=== PATIENT | male | born 1975 | race Caucasian/White ===

== ENCOUNTER 2022-08-15 20:48 | Emergency (ER) | payer SELFPAY ==
--- OUTSIDE RECORDS SUMMARY | 2022-08-15 20:51 | XMS REPORT | Continuity of Care Document ---
:1975 Author Organization [facility] t Address [address] [place] [address] Care Team Providers Name Role Phone Pcp, Patient Does Not Have A Primary Care Physician [phone] Maci Cano RN Attending Clinician Unavailable LEE MAYA Attending Clinician Unavailable Only, Ang Db Test Attending Clinician Unavailable Lee Kohli Attending Clinician Doctor Unassigned, [place] Attending Clinician Unavailable Nguyen Alva Attending Clinician Unknown, Attending Attending Clinician Unavailable NGUYEN BARON Attending Clinician Unavailable Andrea Gasca Attending Clinician ANDREA CHOUDHURY Attending Clinician Unavailable SATISH KIRK Attending Clinician Unavailable KATIE MAHMOOD Attending Clinician Unavailable Dany Rios DO Attending Clinician Leti Borges MD Attending Clinician LETI BORGES Attending Clinician Unavailable LETI BORGES Attending Clinician Unavailable 1, [facility] Attending Clinician Unavailable Payers Payer Name Policy Type Policy Number Effective Date Expiration Date [facility] [id number] 2019 [facility] 00:00:00 Problems Condition Condition Condition Status Onset Resolution Last Treating Co mments Source Name Details Category Date Date Treatment Clinician Date 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 M ethodi hypofuncti hypofuncti 07-10 on on 00:00: Hospita 00 l Left ankle Left ankle Disease Active M ethodi pain pain 03-23 st 00:00: Hospita 00 l No known No known Disease Unive rs active active ity of problems problems [facility] Allergies, Adverse Reactions, Alerts Allergy Allergy Status Severity Reaction(s) Onset Inactive Treating Comm ents Source Name Type Date Date Clinician Rae Black Active Rash Method i cory ty to 07-10 [facility] adverse 00:00: Hospita e reaction 00 l s to drug NO KNOWN Drug Active Univers ALLERGIE Class ity of S [facility] Social History Social Habit Start Date Stop Date Quantity Comments Source History of Current smoker [facility] tobacco use Exposure to 2022-06-21 2022-07-01 Not sure [facility]-CoV-2 00:00:00 11:51:00 [facility] (event) [place] Tobacco use and 2022-05-24 2022-05-24 Smokeless tobacco Un iversity of exposure 00:00:00 00:00:00 non-user [facility] Alcohol intake 2016-07-10 2016-07-10 [facility] 00:00:00 00:00:00 non-drinker of alcohol (finding) Sex Assigned At [address] [facility] 00:00:00 00:00:00 Smoking Status Start Date Stop Date Source Never smoked tobacco [facility] Ex-smoker 2016-03-23 00:00:00 2016-03-23 00:00:00 [facility] Medications Ordered Filled Start Stop Current Ordering Indication Dosage Frequency Signature Comments Components Source Medication Medication Date Date Medication? Clinician (SIG) Name Name kolby 2021-06 Yes 200mg 200 mg by Univers e enanthate 07-24 Intramuscu it y of 200 mg/mL 19:07: lar route Yang as injection 28 once every Medi addis month. [place] aspirin 81 2021-06 Yes 81mg Take 81 mg U nivers mg chewable 07-24 by mouth ity of tablet 19:07: daily. [address] 2021-06 Yes 200mg 200 mg by Univers e enanthate 07-24 Intramuscu it y of 200 mg/mL 19:07: lar route Yang as injection 28 once every Medi addis month. Branch aspirin 81 2021-06 Yes 81mg Take 81 mg U nivers mg chewable 07-24 by mouth ity of tablet 19:07: daily. [address] testosteron 2021-06 Yes 200mg 200 mg by Univers e enanthate 07-24 Intramuscu it y of 200 mg/mL 19:07: lar route Yang as injection 28 once every Medi addis month. Branch aspirin 81 2021-06 Yes 81mg Take 81 mg U nivers mg chewable 07-24 by mouth ity of tablet 19:07: daily. [address] testosteron 2021-06 Yes 200mg 200 mg by Univers e enanthate 07-24 Intramuscu it y of 200 mg/mL 19:07: lar route Yang as injection 28 once every Medi addis month. Branch aspirin 81 2021-06 Yes 81mg Take 81 mg U nivers mg chewable 07-24 by mouth ity of tablet 19:07: daily. [address] oseltamivir 2021-06- Yes [id number] 75mg Take 1 Univers (TAMIFLU) 07-24 1203 capsule by ity of 75 mg 00:00: 05:59 mouth in [place] capsule 00 :00 the [facility] Branch and 1 capsule in the evening. Do all this for 5 days. aspirin 81 2019-0 Yes 81mg Take 81 mg U nivers mg chewable 2-19 by mouth ity of tablet 11:39: daily. [address] aspirin 81 2020-0 Yes 81mg Take 81 mg U nivers mg chewable 2-19 by mouth ity of tablet 11:39: daily. [address] testosteron 2020-0 Yes 200mg 200 mg by Univers e enanthate 2-19 Intramuscu it y of 200 mg/mL 11:38: lar route Yang as injection 54 once every Medi addis month. Branch testosteron 2020-0 Yes 200mg 200 mg by Univers e enanthate 2-19 Intramuscu it y of 200 mg/mL 11:38: lar route Yang as injection 54 once every Medi addis month. Branch Fenofibrate 2020-0 Yes 160mg 160 mg. Un sandro 160 mg 2-12 ity of tablet 00:00: [address] Fenofibrate 2020-0 Yes 160mg 160 mg. Un sandro 160 mg 2-12 ity of tablet 00:00: [address] Fenofibrate 2020-0 Yes 160mg 160 mg. Un sandro 160 mg 2-12 ity of tablet 00:00: Medical Branch Fenofibrate 2020-0 Yes 160mg 160 mg. Un sandro 160 mg 2-12 ity of tablet 00:00: Medical Branch Fenofibrate 2020-0 Yes 160mg 160 mg. Un sandro 160 mg 2-12 ity of tablet 00:00: Medical Branch Fenofibrate 2020-0 Yes 160mg 160 mg. Un sandro 160 mg 2-12 ity of tablet 00:00: Medical Branch ADDERALL XR 2018- Yes TK 1 C PO U nivers 20 mg 24 hr 1-27 ONCE D IN ity of capsule 00:00: [facility] Medical Branch ADDERALL XR 2018-06 Yes TK 1 C PO U nivers 20 mg 24 hr 1-27 ONCE D IN ity of capsule 00:00: THE Medical Branch ADDERALL XR 2018-06 Yes TK 1 C PO U nivers 20 mg 24 hr 1-27 ONCE D IN ity of capsule 00:00: THE Medical Branch ADDERALL XR 2018- Yes TK 1 C PO U nivers 20 mg 24 hr 1-27 ONCE D IN ity of capsule 00:00: [facility] Medical Branch ADDERALL XR 2018- Yes TK 1 C PO U nivers 20 mg 24 hr 1-27 ONCE D IN ity of capsule 00:00: [facility] Medical Branch ADDERALL XR 2018-06 Yes TK 1 C PO U nivers 20 mg 24 hr 1-27 ONCE D IN ity of capsule 00:00: THE [facility] Branch fexofenadin 2017-0 Yes [id number] 180mg Take 1 Univers e 180 mg 5-22 tablet by ity of tablet 00:00: mouth daily. Medical Branch fexofenadin 2016- Yes [id number] 180mg Take 1 Univers e 180 mg 5-22 tablet by ity of tablet 00:00: mouth daily. Medical Branch fexofenadin Yes [id number] 180mg Take 1 Univers e 180 mg 5-22 tablet by ity of tablet 00:00: mouth daily. Medical Branch fexofenadin 2016- Yes [id number] 180mg Take 1 Univers e 180 mg 5-22 tablet by ity of tablet 00:00: mouth [place] 00 daily. Medical Branch fexofenadin 2017-0 Yes [id number] 180mg Take 1 Univers e 180 mg 5-22 tablet by ity of tablet 00:00: mouth [place] 00 daily. Medical Branch fexofenadin 2016-0 Yes [id number] 180mg Take 1 Univers e 180 mg 5-22 tablet by ity of tablet 00:00: mouth [place] 00 daily. Medical Branch Vital Signs Vital Name Observation Time Observation Value Comments Source Body temperature 2022-05-25 01:04:00 37.06 Ananya Univ ersity of [facility] Body height 2022-05-25 01:04:00 177.8 cm Universi ty of [facility] Body weight 2022-05-25 01:04:00 97.932 kg Universi ty [facility] BMI 2022-05-25 01:04:00 30.98 kg/m2 Universi ty [facility] Oxygen saturation in 2022-05-25 01:04:00 99 /min [facility] Arterial blood by [facility] Pulse oximetry Branch Systolic blood 2022-05-25 01:04:00 115 mm[Hg] Univer sity of pressure [facility] Diastolic blood 2022-05-25 01:04:00 78 mm[Hg] Unive rsity of pressure [facility] Heart rate 2022-05-25 01:04:00 87 /min Universi ty of [facility] Systolic blood 2022-04-08 16:35:00 104 mm[Hg] Univer sity of pressure [facility] Diastolic blood 2022-04-08 16:35:00 67 mm[Hg] Unive rsity of pressure [facility] Heart rate 2022-04-08 16:35:00 62 /min Universi ty of [facility] Body temperature 2022-04-08 16:35:00 37.17 Ananya Univ ersity [facility] Respiratory rate 2022-04-08 16:35:00 18 /min Univ ersity of [facility] Body height 2022-04-08 16:35:00 177.8 cm Universi ty of [facility] Body weight 2022-04-08 16:35:00 101.606 kg Universi ty [facility] BMI 2022-04-08 16:35:00 32.14 kg/m2 Universi ty of [facility] Oxygen saturation in 2022-04-08 16:35:00 98 /min University Arterial blood by [facility] Pulse oximetry Branch Procedures Procedure Date / Time Performing Clinician Source Performed COVID-19 (MOLECULAR 2022-07-01 18:01:00 Lee Maya [facility] NUCLEIC ACID AMPLIFICATION) LAB ONLY COVID 2022-07-01 18:01:00 Lee Maya [facility] ASSIGNMENT OF BENEFITS 2022-07-01 17:51:23 Doctor Unassigned, Un [facility] [place] Medical Branch POCT MOLECULAR FLU 2022-05-25 01:13:00 Unknown, Attending [facility] eliana [facility] COVID-19 (MOLECULAR 2021-06-09 01:46:00 [facility] NUCLEIC ACID AMPLIFICATION) LAB ONLY COVID 2021-06-09 01:46:00 Lee Maya [facility] Plan of Care Planned Activity Planned Date Details Comments Source Future Scheduled 2022-06-11 COLONOSCOPY SCREENING [facility] Test 12:00:55 [code = COLONOSCOPY SCREENING] Future Scheduled 2022-06-11 INFLUENZA VACCINE [facility] Test 12:00:55 [code = INFLUENZA VACCINE] Future Scheduled 2022-06-11 COVID-19 VACCINE (#1) [facility] Test 12:00:55 [code = COVID-19 VACCINE (#1)] Encounters Start End Encounter Admission Attending Care Care Encounter Source Date/Time Date/Time Type Type Clinicians Facility Department ID 2022-07-02 2022-07-02 Letter SHANIKA Cano 1.2.840.114 [id number] Univers 00:00:00 00:00:00 (Out) Maci SOLIS 350.1.13.10 [facility] 4.2.7.2.686 Yang as [phone] [place] [address] Branch 2022-07-01 2022-07-01 Outpatient R YULIANA MAYA [facility] [id number] Univers 11:45:00 12:02:03 LEE nash [facility] 2022-07-01 2022-07-01 Laboratory Only, Ang Db Test [facility] 1.2.8 40.114 [id number] Univers 11:45:00 12:02:03 Only FrancescoLee J HEALTH 350.1.13.10 ity of [facility] 4.2.7.2.686 Yang as HERMILO?BLEA [phone] [address] MEDICAL OFFICE [facility] 2022-07-01 2022-07-01 Orders Doctor SHANIKA 1.2.840.114 [id number] Univers 00:00:00 00:00:00 Only Unassigned, IRMA 350.1.13.10 ity of [place] [facility] 4.2.7.2.686 Yang as [id number] [address] 2022-05-24 2022-05-24 Urgent Nguyen Baron [facility] 1.2.840.114 [id number] Univers 19:20:00 19:40:00 Care Unknown, Attending HEALTH 350.1.13.10 ity of [facility] 4.2.7.2.686 Yang as HERMILO?BLEA [id number] [address] MEDICAL OFFICE [facility] 2022-05-24 2022-05-24 [facility] [id number] Univers 19:20:00 19:20:00 NGUYEN [facility] 2022-04-08 2022-04-08 Urgent Andrea Choudhury [facility] 1.2.840.114 [id number] Univers 11:20:00 11:40:00 Care Unknown, Attending HEALTH 350.1.13.10 ity of [facility] 4.2.7.2.686 Yang as HERMILO?BLEA [id number] [address] MEDICAL OFFICE [facility] 2022-04-08 2022-04-08 Outpatient R JEROD [facility] [id number] Univers 11:20:00 11:20:00 ANDREA [facility] 2021-07-11 2021-07-11 [facility] [id number] Univers 14:40:00 14:40:00 SATISH [facility] 2021-06-10 2021-06-10 Outpatient R ELA [facility] [id number] Univers 16:00:00 16:00:00 KATIE maura [facility] 2021-06-10 2021-06-10 Outpatient R ELA [facility] [id number] Univers 16:00:00 16:00:00 KATIE perdomo [facility] 2021-06-08 2021-06-08 Outpatient R FRANCESCO [facility] [id number] Univers 20:30:00 20:30:00 LEE perdomo o saad [facility] 2021-06-08 2021-06-08 Outpatient R FRANCESCO [facility] [id number] Univers 20:30:00 20:30:00 LEE perdomo o saad [facility] 2021-06-08 2021-06-08 Laboratory Only, Ang Db Test [facility] 1.2.8 40.114 [id number] Univers 20:30:00 20:30:00 Only Lee Maya [facility] 350.1.13.10 ity of [place] 4.2.7.2.686 Yang as HERMILO?BLEA [phone] [address] MEDICAL OFFICE BUILDING 2021-06-08 2021-06-08 Orders Doctor SHANIKA 1.2.840.114 [id number] Univers 00:00:00 00:00:00 Only Unassigned, IRMA 350.1.13.10 ity of [place] [facility] 4.2.7.2.686 Yang as [phone] [facility] 009 [place] 2021-03-03 2021-03-03 Letter SHANIKA Cano 1.2.840.114 [id number] Univers 00:00:00 00:00:00 (Out) Maci SOLIS 350.1.13.10 it y of [facility] 4.2.7.2.686 Yang as [phone] [facility] 019 Branch 2021-03-02 2021-03-02 Outpatient R FRANCESCO [facility] [id number] Univers 13:40:00 13:40:00 LEE perdomo o saad [facility] 2021-03-02 2021-03-02 Laboratory Only, Ang Db Test [facility] 1.2.8 40.114 [id number] Univers 12:53:05 13:03:05 Only Lee Maya [facility] 350.1.13.10 ity of [place] 4.2.7.2.686 Yang as Hermilo?Blea [id number] [facility] [address] [place] Medical Office [facility] 2020-09-12 2020-09-12 Patient Gabriel [facility] 1.2.840.114 [id number] Univers 00:00:00 00:00:00 Outreach Dany PRIMARY 350.1.13.10 i ty of [facility] 4[place]2.7.2.[place] [id number] [facility] [address] [place] 2020-07-02 2020-07-02 Telephone Kevin [facility] 1.2.840.114 [id number] Univers 00:00:00 00:00:00 Stravictoriano Lang 350.1.13.10 ity of [place].2.[place] Profess[place] [phone] [address] 2019-11-29 2019-11-29 Orders Doctor SHANIKA 1.2.840.114 [id number] Univers 00:00:00 00:00:00 Only Unassigned, IRMA 350.1.13.10 ity of [place] [facility] 4.2.7.2.686 Yang as [id number] [address] 2019-11-22 2019-11-22 Outpatient R LETI BORGES [facility] [id number] Univers 11:00:00 11:00:00 LETI BORGES ity [facility] 2019-11-22 2019-11-22 Telemedici Kevin [facility] 1.2.840.114 [id number] Univers 08:33:53 09:03:53 ne Visit Leti Lang 350.1.13.10 ity of [place]2.[place] Profess[place] [id number] [address] 2019-10-16 2019-10-16 Orders Doctor SHANIKA 1.2.840.114 [id number] Univers 00:00:00 00:00:00 Only Unassigned, IRMA 350.1.13.10 ity of [place] [facility] 4.2.7.2.686 Yang as [id number] [address] 2019-09-27 2019-09-27 Orders Doctor SHANIKA 1.2.840.114 [id number] Univers 00:00:00 00:00:00 Only Unassigned, IRMA 350.1.13.10 ity of [place] [facility] 4.2.7.2.686 Yang as [id number] [address] 2019-09-11 2019-09-11 Orders Doctor SHANIKA 1.2.840.114 [id number] Univers 00:00:00 00:00:00 Only Unassigned, IRMA 350.1.13.10 ity of [place] [facility] 4.2.7.2.686 Yang as [id number] [address] 2019-08-23 2019-08-23 Outpatient R LETI BORGES [facility] [id number] Univers 20:00:00 20:00:00 LETI BORGES itmaura [facility] 2019-08-23 2019-08-23 Blow Mold Technician 1, [facility] Sleep Lab Bed [facility] 1. 2.840.114 [id number] Univers 13:57:39 16:27:39 Visit Leti Borges 350.1.13. 10 ity of [place]2.[place] [id number] [address] 2019-08-16 2019-08-16 Office Kevin [facility] [id number] [id number] Univers 11:30:42 12:00:42 Visit Leti Lang 350.1.13.10 ity of [place].2.686 [place] [facility] [phone] Ct dical nal 5 [facility] 2019-08-16 2019-08-16 Orders Doctor SHANIKA 1.2.840.114 [id number] Univers 00:00:00 00:00:00 Only Unassigned, IRMA 350.1.13.10 ity of [place] [facility] 4.2.7.2.686 Yang as [phone] [address] Results Test Description Test Time Test Comments Results Result Comments Source POCT MOLECULAR FLU 2022-05-25 01:18:18 Test Item Value Reference Range Interpretation Comme nts POCT Molecular FluA (test code = 92379-9) Positive Negative A Lab Interpretation (test code = 59742-7) Abnormal [facility]
[2022-08-15 23:44] LABS: Absolute Lymphocytes (CBC) 1.1 K/uL (0.7-4.9); Hematocrit 41.7 % (39.6-49.0); Lymphocytes % 15.2 % (15.3-44.8); MCV 88.6 fL (80-100); MPV 10.1 fL (7.6-11.3)
[2022-08-15 23:47] LABS: Protime INR 1.05
[2022-08-15 23:51] LABS: Urine Blood Negative (Negative); Urine Glucose Negative (Negative); Urine Protein Negative (Negative); Urine Specific Gravity 1.015 (1.005-1.030); Urine pH 5.5 (5.0-7.0)
[2022-08-15 23:59] LABS: ALT/SGPT 25 U/L (16-61); AST/SGOT 18 U/L (15-37); Albumin 4.4 g/dL (3.4-5.0); Alkaline Phosphatase 80 U/L (45-117); BUN Blood Urea Nitrogen 11 mg/dL (7-18); Bicarbonate 26 mmol/L (21-32); Bilirubin Direct 0.1 mg/dL (0-0.2); Bilirubin Total 0.3 mg/dL (0.2-1.0); Glomerular Filtration Rate 82 ml/min (=/>90); Glucose Level 119 mg/dL (74-106); Potassium 3.2 mmol/L (3.5-5.1); Sodium Level 138 mmol/L (136-145)
[2022-08-16 00:18] LABS: Barbiturates NEGATIVE (NEGATIVE); Benzodiazepines NEGATIVE (NEGATIVE); Cocaine NEGATIVE (NEGATIVE); METHAMPHETAM POSITIVE (NEGATIVE); Methadone NEGATIVE (NEGATIVE); Opiates NEGATIVE (NEGATIVE); Phencyclidine NEGATIVE (NEGATIVE); THC Cannibis NEGATIVE (NEGATIVE)
--- NOTE | 2022-08-16 04:08 | ER ---
Nurse's Notes [facility] Name: Saúl Guerrero Age: 46 yrs Sex: Male : 1975 Arrival Date: 08/15/2022 Time: 20:58 Bed 17 Private MD: Diagnosis: Suicidal ideations;Overdose - alcohol Presentation: 08/15 21:14 Chief complaint: Patient states: [employer] brought pt in to ER. pt had been drinking tonight as6 and was texting his family saying he had thoughts of harming himself. Coronavirus screen: At this time, the client does not indicate any symptoms associated with coronavirus-19. Ebola Screen: No symptoms or risks identified at this time. Initial Sepsis Screen: Does the patient meet any 2 criteria? No. Patient's initial sepsis screen is negative. Does the patient have a suspected source of infection? No. Patient's initial sepsis screen is negative. Risk Assessment: Do you want to hurt yourself or someone else? Patient reports desire/thoughts of hurting themselves or someone else. Provider notified. Onset of symptoms was August 15, 2022. 21:14 Method Of Arrival: Law Enforcement: Brian Colbert as6 21:14 Acuity: KARTHIK 2 as6 Historical: - Allergies: 21:19 No Known Allergies; as6 - PMHx: 21:19 Anxiety; Hypercholesterolemia; as6 - PSHx: 21:19 None; as6 - Immunization history:: Client reports having NOT received the Covid vaccine. - Social history:: Smoking status: Reported history of juuling and/or vaping. Screenin:44 [facility] ED Fall Risk Assessment (Adult) History of falling in the last 3 months, vc1 including since admission No falls in past 3 months (0 pts) Confusion or Disorientation No (0 pts) Intoxicated or Sedated No (0 pts) Impaired Gait No (0 pts) Mobility Assist Device Used No (0 pt) Altered Elimination No (0 pt) Score/Fall Risk Level 0 - 2 = Low Risk Oriented to surroundings, Maintained a safe environment, Educated pt \\T\\ family on fall prevention, incl call for assistance when getting out of bed, Assessed \\T\\ reinforced patient's understanding of fall precautions, Provided non-skid footwear, Hourly rounding (assess needs \\T\\ fall precautionary measures) done, Used ambulatory aids as needed (educated on \\T\\ assisted with). Abuse screen: Denies threats or abuse. Nutritional screening: No deficits noted. Tuberculosis screening: No symptoms or risk factors identified. Assessment: 23:30 Reassessment: Pt states that tomorrow if the 1 year anniversary of the day his heather left him and he found out on the that she is dating someone else. Pt states he set up an appointment with counseling before he started drinking. Once drinking he took an unknown amount of Adderall and possibly some hydroxyzine. 23:31 Reassessment:. vc1 23:39 Reassessment: Spoke with poison control, recommends to observe 6 hours from time of vc1 ingestion and provide symptomatic and supportive care. Administer benzos if seizures or hallucinations occur. Ingestion on Adderall and/or Hydroxyzine normally causes Tachycardia. Using with alcohol may and a counteractive reaction. Pain: Denies pain. Neuro: Level of Consciousness is awake, alert, obeys commands. 08/16 01:05 Reassessment: Pt pacing around the room, asking for his phone. Instructed phone is with vc1 security. General: Behavior is anxious, restless. 03:00 Reassessment: Pt states he feels like an idiot. "I can't believe I did that. I haven't vc1 drank like that in years now I know why.". 04:22 Reassessment: No changes from previously documented assessment. Patient and/or family vc1 updated on plan of care and expected duration. Pain level reassessed. pt resting comfortably. 07:00 Reassessment: Sitter at bedside (see paper chart) . aa5 07:15 General: Appears comfortable, Behavior is calm, cooperative. General: Pt states "I know aa5 I said some stupid things last night but it was because I was drinking and I normally don't drink and I know my brother was concerned". Pt denies suicidal thoughts, denies homicidal thoughts. Pt states "I have so much to live for, I have 4 kids and 4 grandkids" . Pain: Denies pain. Neuro: Level of Consciousness is awake, alert, obeys commands, Oriented to person, place, time, situation. Cardiovascular: Heart tones S1 S2 present Rhythm is regular. Respiratory: Airway is patent Respiratory effort is even, unlabored, Respiratory pattern is regular, symmetrical, Breath sounds are clear bilaterally. GI: Abdomen is round non-distended, Bowel sounds present X 4 quads. Abd is soft and non tender X 4 quads. Patient currently denies nausea, vomiting. : No signs and/or symptoms were reported regarding the genitourinary system. EENT: No signs and/or symptoms were reported regarding the EENT system. Derm: Skin is pink, warm \\T\\ dry. Musculoskeletal: Range of motion: intact in all extremities. 07:17 Reassessment: SARS rapid collected and repeat ETOH drawn and sent to lab. . aa5 07:40 Reassessment: Awaiting mental evaluation by [facility], pt was notified of wait time. . aa5 08:15 Reassessment: Patient is alert, oriented x 3, equal unlabored respirations, skin aa5 warm/dry/pink. 11:14 Reassessment: got patient phone from security to contact brother to take care of [facility] animals at home, and to have the information for [facility] when they arrive. 12:25 Reassessment: pt requesting beverage, dr kaminski, from vending machine; pt requested vg1 credit card from [employer] to purchase beverage; nurse went to vending machine with pt credit card; after purchase nurse gave pt credit card to place back with linda phoenix TORI as witness. 13:14 Reassessment: [facility] at bedside. kr3 13:48 Reassessment: [facility] left bedside. kr3 14:11 Reassessment:. kr3 Psych: 08/15 23:45 [place] Suicide Severity Screening: In the past month, have you wished you were vc1 or wished you could go to sleep and not wake up? Patient responds "yes." Based off the client's responses additional C-SSRS screening is required. "In the past month, have you actually had any thoughts of killing yourself?" Patient responds "yes." Based off the client's response additional [place] suicide severity screening questions to be further documented on paper forms. "In your lifetime, have you ever done anything, started to do anything, or prepared to do anything to end your life?" Patient responds "yes." Patient reports suicidal intent within 3 past months. Subjective: Patient's mood is sad, Delusions are denied, Hallucinations are denied Having thoughts of suicide. Denies suicidal plan. Objective: Patient is cooperative, Speech is normal, Affect is flat. Interventions: Removed personal items and placed in bag. Patient placed in hospital gown. Searched person for dangerous items. Urine collected and sent for urine drug test. Belonging list filled out. Safety Checks: Personal items have been removed. Door is open. Visitors are present. Patient uses "Half a bottle of fireball". Commitment: Patient will be an involuntary commitment. Commitment papers completed. Vital Signs: 21:14 BP 119 / 77; Pulse 81; Resp 18 S; Temp 97.9(O); Pulse Ox 95% on R/A; Weight 102.06 kg as6 (R); Height 5 ft. 10 in. (177.80 cm) (R); Pain 0/10; 08/16 07:10 BP 127 / 78; Pulse 99; Resp 16 S; Temp 97.8(TE); Pulse Ox 100% on R/A; Pain 0/10; aa5 13:58 BP 136 / 78; Pulse 72; Resp 16; Temp 97.8(O); Pulse Ox 100% ; kr3 08/15 21:14 Body Mass Index 32.28 (102.06 kg, 177.80 cm) as6 ED Course: 08/15 20:58 Patient arrived in ED. jj6 21:06 Rolanda Edgar MD is Attending Physician. sd2 21:19 Triage completed. as6 21:21 Arm band placed on. as6 23:31 Kennedi Almazan RN is Primary Nurse. vc1 23:35 Inserted saline lock: 20 gauge in left antecubital area, using aseptic technique. Blood oe collected. 08/16 01:06 Patient has correct armband on for positive identification. vc1 07:15 IV was discontinued by the patient. during building service worker, reported by patient. No IV aa5 noted. . 07:32 called the [facility] Crisis Line/ Alisa will page out the screener telephonic nurse case manager/. eb 07:33 Attending Physician role handed off by Rolanda Edgar MD kdr 07:33 Jai Trotter MD is Attending Physician. kdr 09:00 Report given to EM Sterling. aa5 10:09 patient given toothbrush and toothpaste for oral care. kr3 10:34 junior from [facility] called and said he will be driving in from [place] and will be here eb at 1145. 13:09 Junior from [facility] here to screen patient. eb 14:11 No provider procedures requiring assistance completed. Patient did not have IV access kr3 during this emergency room visit. Administered Medications: No medications were administered Medication: 08/15 23:50 VIS not applicable for this client. vc1 Outcome: 08/16 04:07 ER care complete, transfer ordered by . sd2 14:00 Discharge ordered by MD. kdr 14:11 Discharged to home ambulatory, instructed to follow [facility] instructions after kr3 discharge 14:11 Condition: stable 14:11 Discharge instructions given to patient, Instructed on discharge instructions, follow up and referral plans. Demonstrated understanding of instructions, follow-up care. 14:12 Patient left the ED. kr3 Signatures: Jai Trotter MD MD kdr Lynn Page, RN RN aa5 Dante Loya Elizabeth eb Garcia, Victoria, RN RN vg1 Irma Snyder Ashby, RN RN as6 Kennedi Almazan RN RN vc1 Rolanda Edgar MD MD sd2 Hallie Santoyo, RN RN kr3 Corrections: (The following items were deleted from the chart) 08/15 21:21 21:19 PMHx: None; as6 as6 08/16 11:17 11:14 Reassessment: got patient phone from security to contact brother to take care of kr3 animals at home, and to have the information for [facility] when they arrive kr3
--- NOTE | 2022-08-16 04:08 | EDPHYS ---
Physician Documentation [facility] Name: Saúl Guerrero Age: 46 yrs Sex: Male : 1975 Arrival Date: 08/15/2022 Time: 20:58 Bed 17 Private MD: ED Physician Jai Trotter HPI: 08/15 23:52 This 46 yrs old Male presents to ER via Law Enforcement with complaints of Altered sd2 Mental Status. 23:52 46-year-old male presents via law enforcement with chief complaint of suicidal sd2 ideation. He reports that tomorrow is a 1 year anniversary of the date his ex- asked for divorce. He states he does not normally drink but he drank heavily this evening and believes he "said some things I should not have said." He believes he may have sent some text messages to both his ex- and his brother. He reports his brother called the police to have him brought here. He reports he has been having suicidal thoughts of wanting to harm himself and states that he would act on them if he did not have children. He states that today he did start the process to schedule time with a therapist. He denies any homicidal ideation or hallucinations. He also reports he thinks he may have taken all of his remaining Adderall today which may have been about 20 pills and also possibly his hydroxyzine. . Historical: - Allergies: 21:19 No Known Allergies; as6 - PMHx: 21:19 Anxiety; Hypercholesterolemia; as6 - PSHx: 21:19 None; as6 - Immunization history:: Client reports having NOT received the Covid vaccine. - Social history:: Smoking status: Reported history of juuling and/or vaping. ROS: 23:54 Constitutional: Negative for fever, chills, and weight loss, Eyes: Negative for injury, sd2 pain, redness, and discharge, Cardiovascular: Negative for chest pain, palpitations, and edema, Respiratory: Negative for shortness of breath, cough, wheezing. Abdomen/GI: Negative for abdominal pain, nausea, vomiting, diarrhea. MS/Extremity: Negative for injury and deformity, Skin: Negative for injury, rash, and discoloration, Neuro: Negative for headache, numbness and tingling. Psych: Positive for depression and suicidal ideation. Negative for homicidal ideation and hallucinations. Exam: 23:54 Constitutional: This is a well developed, well nourished patient who is awake, alert, sd2 and in no acute distress. Head/Face: Normocephalic, atraumatic. Eyes: EOMI, normal conjunctiva bilaterally Chest/axilla: Normal chest wall appearance and motion. Nontender with no deformity. Cardiovascular: Regular rate and rhythm with a normal S1 and S2. No gallops, murmurs, or rubs. 2+ distal pulses. Respiratory: Lungs have equal breath sounds bilaterally, clear to auscultation and percussion. No rales, rhonchi or wheezes noted. No increased work of breathing, no retractions or nasal flaring. Abdomen/GI: Soft, non-tender, with normal bowel sounds. No guarding or rebound. No evidence of tenderness throughout. Skin: Warm, dry with normal turgor. Normal color with no rashes, no lesions, and no evidence of cellulitis. MS/ Extremity: Pulses equal, no cyanosis. Neurovascular intact. Full, normal range of motion. Ambulatory without difficulty. Psych: Awake, alert, with orientation to person, place and time. Behavior, mood, and affect are within normal limits. 08/16 03:25 ECG was reviewed by the Attending Physician. NSR, rate 84, no STEMI criteria sd2 Vital Signs: 08/15 21:14 BP 119 / 77; Pulse 81; Resp 18 S; Temp 97.9(O); Pulse Ox 95% on R/A; Weight 102.06 kg as6 (R); Height 5 ft. 10 in. (177.80 cm) (R); Pain 0/10; 08/16 07:10 BP 127 / 78; Pulse 99; Resp 16 S; Temp 97.8(TE); Pulse Ox 100% on R/A; Pain 0/10; aa5 13:58 BP 136 / 78; Pulse 72; Resp 16; Temp 97.8(O); Pulse Ox 100% ; kr3 08/15 21:14 Body Mass Index 32.28 (102.06 kg, 177.80 cm) as6 MDM: 08/15 23:17 Patient medically screened. sd2 23:54 Differential Diagnosis: SI, HI, substance abuse, doubt ICH, intoxication among others. sd2 Data reviewed: vital signs, nurses notes. Independent interpretation of the following test(s) in the Emergency Department EKG: See my EKG interpretation above. Historians other than the Patient: Law enforcement: . Care significantly affected by the following Social Determinants of Health: Problems related to primary support group. 08/16 08:44 ED course: Patient continues to be stable in the ED and not requiring any intervention. kdr His most recent alcohol level was 57 [facility]. Patient is stating that he does not intend to harm himself that he just had too much to drink and denies any suicidal thoughts or any ongoing danger to himself or others. 08/15 21:23 Order name: Acetaminophen 08/15 21:23 Order name: Basic Metabolic Panel 08/15 21:23 Order name: CBC with Diff 08/15 21:23 Order name: ETOH Level 08/15 21:23 Order name: Hepatic Function 08/15 21:23 Order name: PT-INR 08/15 21:23 Order name: Ptt, Activated 08/15 21:23 Order name: Salicylate 08/15 21:23 Order name: Urine Drug Screen 08/15 23:45 Order name: CBC with Automated Diff; Complete Time: :08/15 23:48 Order name: Protime (+INR); Complete Time: :08/15 23:48 Order name: PTT, Activated Partial Thromb; Complete Time: :08/15 23:51 Order name: Urine Dipstick-Ancillary; Complete Time: :08/15 23:55 Order name: Salicylates Level; Complete Time: :08/15 21:23 Order name: EKG; Complete Time: 21:24 08/15 21:23 Order name: EKG - Nurse/Tech; Complete Time: 23:28 08/16 00:00 Order name: Basic Metabolic Panel; Complete Time: :08/16 00:00 Order name: Liver (Hepatic) Function; Complete Time: :08/16 00:00 Order name: Acetaminophen Level; Complete Time: :08/16 00:02 Order name: Alcohol Serum/Plasma; Complete Time: 01:26 EDMS 08/16 00:19 Order name: Urine Drug Screen; Complete Time: 01:26 EDMS 08/16 01:38 Order name: Diet Finger Food; Complete Time: 01:39 vc1 08/16 02:57 Order name: Ethanol sd2 08/16 03:57 Order name: Alcohol Serum/Plasma; Complete Time: 06:07 EDMS 08/16 07:00 Order name: Diet Finger Food: for breakfast please; Complete Time: 07:00 aa08/16 07:03 Order name: Diet Finger Food; Complete Time: 07:03 aa08/16 07:07 Order name: SARS RAPID aa08/16 07:07 Order name: ETOH Level 08/16 07:37 Order name: SARS-COV-2 Antigen Rapid; Complete Time: 08:40 EDMS 08/16 07:54 Order name: Alcohol Serum/Plasma; Complete Time: 08:40 EDMS 08/15 21:23 Order name: IV Saline Lock; Complete Time: 23:52 sd2 08/15 21:23 Order name: Labs collected and sent; Complete Time: 23:52 sd2 08/15 21:23 Order name: Suicide Screening (Barry); Complete Time: 23:52 sd2 08/15 21:23 Order name: Urine Dipstick-Ancillary (obtain specimen); Complete Time: 23:52 sd2 Administered Medications: No medications were administered Disposition Summary: 08/16/22 14:00 Discharge Ordered Location: Home kdr Problem: new(08/16/22 14:00) kdr Symptoms: have improved(08/16/22 14:00) kdr Condition: Stable(08/16/22 14:00) kdr Diagnosis - Suicidal ideations(08/16/22 14:00) kdr - Overdose kdr - Overdose - alcohol kdr Followup: kdr - With: Private Physician - When: 48 Hours - Reason: If symptoms return, Further diagnostic work-up, Recheck today's complaints, Continuance of care, Re-evaluation by your physician Discharge Instructions: - Discharge Summary Sheet kdr - Suicidal Feelings: How to Help Yourself kdr - Helping Someone Who is Suicidal kdr - Alcohol Intoxication, Xjna-un-Cagi kdr Forms: - Medication Reconciliation Form kdr - Thank You Letter kdr Signatures: Dispatcher [employer] Jai Louis MD MD kdr Malachi Keene, EM RN as6 Rolanda Edgar MD MD sd2 Corrections: (The following items were deleted from the chart) 08/15 21:21 21:19 PMHx: None; as6 as6 08/16 13:59 04:07 Inpatient Psych Facility sd2 kdr 13:59 04:07 Psych Facility sd2 kdr 13:59 04:07 Higher level of care sd2 kdr 13:59 04:07 Stable sd2 kdr 13:59 04:07 new sd2 kdr 13:59 04:07 have improved sd2 kdr 13:59 04:07 Suicidal ideations sd2 kdr 13:59 04:07 Medication overdose sd2 kdr
[2022-08-16 07:37] LABS: SARS-CoV-2 Antigen Rapid Res Negative (Negative)
[2022-08-16 14:18] VITALS: TEMP 97.8; O2SAT 100
[2022-08-16 14:20] VITALS: BP 136/78
--- NOTE | 2022-08-17 12:39 | EKG ---
Test Date: 2022-08-15 Test Time: 22:59:11 Foundation Director: JERMAINE MEASUREMENT RESULTS: Intervals: Rate: 84 AK: 140 QRSD: 100 QT: 368 QTc: 434 [place]: P: 30 AK: 140 QRS: 1 T: 23 INTERPRETIVE STATEMENTS: Normal sinus rhythm Minimal voltage criteria for LVH, may be normal variant Borderline ECG No previous ECG available for comparison Electronically Signed On 08-17-22 12:36:05 CASH REGISTER MECHANIC by Anthony Hernandez
== END 2022-08-16 14:12 | disposition home or self-care (01) ==
LOC: ER 20:48
DX: R45.851 Suicidal ideations (principal); T43.621A Poisoning by amphetamines, accidental (unintentional), initial encounter; T51.91XA Toxic effect of unspecified alcohol, accidental (unintentional), initial encounter; Z20.822 Contact with and (suspected) exposure to COVID-19
CPT/HCPCS: 36415; 80048; 80076; 80307; 81003; 85025; 85610; 85730; 87811; 93005; 99284; G0480